=== PATIENT | female | born 1970 | race Caucasian/White ===

== ENCOUNTER 2023-06-16 19:51 | Emergency (ER) | payer BC, SELFPAY ==
[2023-06-16 19:56] VITALS: BP 131/90
[2023-06-16] MEDS: TYLENOL 1000 MG PO (22:56)
[2023-06-16 22:57] VITALS: BMI 25.9
[2023-06-16 22:59] VITALS: BP 127/68
--- NOTE | 2023-06-16 23:11 | ED.MUSCINJ ---
HPI-Injury
General
Chief Complaint: Fall
Source: patient and family (Sister at bedside)
Exam Limitations: none
Time Seen by Provider: 06/16/23 21:53
Nursing documentation reviewed up to this point in time: agreed with
Travel History
Have you had any contact with someone who has COVID-19?: No
Do you have any symptoms of coronavirus? Fever > 100 degrees, chills, cough, shortness of breath, sore throat, loss of taste or smell, muscle aches, or headache?: No
History of Present Illness-Injury
Initial Injury comments:
52-year-old female with no clinically significant past medical history states she slipped on her wet hardwood floor and fell forward striking the left forehead/orbit area on the floor about 3-1/2 hours ago. There is no loss of consciousness. She
denies change in vision. Her neck is sore. She denies nausea or vomiting. Right wrist is sore.
Past History
Past History
ED Past Medical History: GERD and Psychiatric
ED Past Surgical History: Gynecological
Social History
Tobacco: Non-smoker
Alcohol: None
Drug: None
Personal:
Living: with family
Employment: Not employed
Review of Systems
Review of Systems
Allergies reviewed?: Yes
All Other Systems: ROS reviewed and negative except as documented in HPI and ROS
Respiratory: Denies trouble breathing
Cardiac: Denies chest pain or syncope
ABD/GI: Denies abdominal pain, nausea or vomiting
: Denies dysuria, incontinence or difficulty voiding
Musculoskeletal: Reports neck pain and other (mild right wrist pain); Denies back pain
Skin: Reports other (bruise and swelling left lateral orbit)
Neurological: Reports headache; Denies dizzy, weakness or numbness
Phy Exam
Physical Exam
Physical Exam:
GENERAL: No acute distress. A&Ox3.
CONSTITUTIONAL: Afebrile.
EYES: PERRL, conjunctivae normal, contusion with mild swelling and ecchymosis lateral left orbit. EOMs intact.
Neck: Supple
ENMT: moist mucus membranes, Pharynx nl
RESPIRATORY: Regular respirations, nonlabored, lungs clear.
CARDIOVASCULAR: Regular rate and rhythm, no murmurs, no rubs.
GI: Soft, nontender
MUSCULOSKELETAL: Tender bilateral paracervical ST, no spinal bony tenderness, axial load neg. Moves with ease. Well perfused.
SKIN: Warm, dry, pink
PSYCH: Normal mood and affect. Well kept, interactive and appropriate
NEUROLOGIC: Awake, alert and oriented. No focal neurological deficits. Cranial nerves II through XII intact. Finger-nose intact. Ambulates well with steady gait.
Injury Course
Orders/Labs/Results
Orders:
Orders
06/16/23 20:01
CT Head W/o Iv Contrast Urgent
Comment:
Reason For Exam: fall
06/16/23 22:49
Acetaminophen [Tylenol] 1,000 mg PO NOW STA
MDM/Problems Addressed
MDM/Problems Addressed:
52-year-old female with no clinically significant past medical history states she slipped on her wet hardwood floor and fell forward striking the left forehead/orbit area on the floor about 3-1/2 hours ago. There is no loss of consciousness. She
denies change in vision. Her neck is sore. She denies nausea or vomiting. Right wrist is sore.
No history of loss of consciousness, no focal neurological deficits.
Head CT negative
Soft tissue tenderness bilateral cervical spine, no spinal bony tenderness, axial load negative.
Patient out of bed and ambulating well with steady gait.
Stable for discharge
*Critical Care Note
Total Time (30-74mins, 75-104mins- exclusive of procedures): Not Applicable
ED Attending Note
-
Portions of this chart may have been created with voice recognition software.� Occasional wrong word or��sound alike� substitutions may have occurred due to the inherent limitations of voice recognition software.
Discharge Plan
Departure
Patient Disposition: Home (Routine Discharge)
Date of Disposition: 06/16/23
Time of Disposition: 23:08
Patient with high blood pressure during this ER visit?: No
Condition: Good
Discharge Problem:
Fall from slip, trip, or stumble, Contusion of left orbit, Acute cervical myofascial strain
Instructions: Concussion, Adult (DC), Contusion (DC), Cervical Muscle Strain (DC)
Prescriptions:
No Action
mometasone [Nasonex] 17 GM spray,non-aerosol
2 spray intranasal DAILY
estradiol 1 APPLIC cream
1 applic vaginal WEEKLY
Patient Comments:
02/22/21- patient does not have specific day of week just uses when she remembers
clonazepam 0.5 MG tablet
0.5 mg PO BID
Patient Comments:
patient bulk picker on 02/19/21 #60
topiramate 25 MG tablet
25 mg PO BID
omeprazole 40 MG capsule,delayed release(DR/EC)
40 mg PO DAILY
sertraline 25 MG tablet
12.5 mg PO QPM
hydroxychloroquine 200 MG tablet
200 mg PO DAILY
fexofenadine-pseudoephedrine [Aissatou-D 12 Hour] 1 EACH tablet extended release 12 hr
1 tab PO DAILY
bupropion HCl 300 MG tablet extended release 24 hr
300 mg PO DAILY
Lactobac 2-Bifido 1-S. therm [High Potency Probiotic] 1 CAP capsule
1 cap PO DAILY
oxycodone-acetaminophen 5 MG/325 MG tablet
1 - 2 tab PO Q4HPRN PRN (Reason: moderate to severe pain) Qty: 20 0RF
Referrals:
Jas Blackman DO [Family Provider] - Follow up in 2-3 days
Activity Restrictions/Additional Instructions:
As we discussed, Tylenol 1000 mg up to 3 times a day as needed for headache for the next 2 days
After 2 days if you still have pain or headache you may take ibuprofen.
Return here immediately for vomiting more than once in 1 hour, confusion or headache that gets worse and worse despite Tylenol or ibuprofen.
Cold compress to the bruised area 15 minutes off and on for the next 2 days to minimize swelling
You may get a black eye.
Interventions
Interventions:
*Risk Screen - Suicide Last Done: 06/16/23 19:54
*General Assessment Last Done: 06/16/23 19:54
*Neglect/Abuse Screening Last Done: 06/16/23 19:54
*Nursing Disposition Last Done: 06/16/23 23:17
ED- Neurological Assessment Last Done: 06/16/23 23:01
Discharge Date and Time
Discharge Date/Time: 06/16/23 23:17
== END 2023-06-16 23:17 | disposition home or self-care (01) ==
LOC: EMR 19:51
PROVIDERS: EMERGENCY PHYSICIAN Emergency Medicine; FAMILY PHYSICIAN Family Medicine
DX: S05.12XA Contusion of eyeball and orbital tissues, left eye, initial encounter (principal); S16.1XXA Strain of muscle, fascia and tendon at neck level, initial encounter; W01.0XXA Fall on same level from slipping, tripping and stumbling without subsequent striking against object, initial encounter
CPT/HCPCS: 99284; 70450

== ENCOUNTER 2023-09-06 13:34 | Emergency (ER) | payer BC, SELFPAY ==
[2023-09-06 13:39] VITALS: BP 148/77
--- NOTE | 2023-09-06 14:01 | ED.GENMED ---
History of Present Illness
<Lana Daniels PA-C - Last Filed: 09/06/23 18:10>
General
Chief Complaint: Eye Problems
Source: patient
Exam Limitations: none
Time Seen by Provider: 09/06/23 13:49
Nursing documentation reviewed up to this point in time: agreed with
Travel History
Have you had any contact with someone who has COVID-19?: No
Do you have any symptoms of coronavirus? Fever > 100 degrees, chills, cough, shortness of breath, sore throat, loss of taste or smell, muscle aches, or headache?: No
History of Present Illness
History of Present Illness:
53-year-old female with a past medical history of GERD, interstitial cystitis, Sjogren's, presenting to the emergency department today with right eye pain and redness. Patient states that this started a few days ago with redness on her upper and
lower eyelids, and then progressed to some eye redness and pain. Patient denies any changes in her vision. Patient also notes that she has had a runny nose and will yesterday with purulent drainage from her eye. Patient also notes that she has
had a eruption of her herpes zoster on her her lips and is started valacyclovir. Patient denies any headache. Patient denies any chest pain, shortness of breath, abdominal pain. Patient does take Plaquenil her Sjogren's and does follow-up with
production corrugator for retinal checks. Patient has never had anything like this before.
Past History
<Lana Daniels PA-C - Last Filed: 09/06/23 18:10>
Past History
ED Past Medical History: GERD and Psychiatric
ED Past Surgical History: Gynecological
Social History
Tobacco: Non-smoker
Alcohol: None
Drug: None
Personal:
Living: with family
Employment: Not employed
Review of Systems
<Lana Daniels PA-C - Last Filed: 09/06/23 18:10>
Review of Systems
All Other Systems: ROS reviewed and negative except as documented in HPI and ROS
Phy Exam
<Lana Daniels PA-C - Last Filed: 09/06/23 18:10>
Physical Exam
Physical Exam:
General: Patient is well appearing and in no acute distress; non-toxic
Skin: Warm and dry, there is a erythematous rash in the right infraorbital region as well as right upper eyelid.
Head: Normocephalic, atraumatic
Eyes: Sclera non-icteric. EOMs intact. Right eye visual acuity 20/20, left eye visual acuity 20/30. Right eye: Scleral injection noted with some purulent drainage, no consensual photophobia. White ulcer noted in the right lower conjunctiva. With
fluorescein staining, no corneal ulcers, abrasions, or dendritic lesions. Right intraocular pressure 14 mmHg via tonometer.
Mouth: Herpetic vesicular lesions noted to the left upper lip. No intraoral lesions. No tongue swelling, no pharyngeal lesions.
Cardiac: Regular rate and rhythm, no murmurs
Peripheral Vascular: No lower extremity swelling
Pulm: Normal respiratory effort
Musculoskeletal: No tenderness to palpation of the facial bones or cervical spine.
Neuro: CN II-XII intact, no focal neurologic deficits.
Psychiatric: Appropriate mood and affect.
Course
<Lana Daniels PA-C - Last Filed: 09/06/23 18:10>
Orders/Labs/Results
Orders:
Orders
09/06/23 15:05
Tetracaine HCl [Tetracaine 0.5% Ophthalmic Solution] 1 drop .ROUTE .[facility]
Vital Signs
Initial and Last Documented VS:
Initial Vital Signs
Temp Pulse Resp BP Pulse Ox
98.2 F 80 18 148/77 99
09/06/23 13:39 09/06/23 13:39 09/06/23 13:39 09/06/23 13:39 09/06/23 13:39
Last Documented Vital Signs
Temp Pulse Resp BP Pulse Ox
98.2 F 80 18 148/77 99
09/06/23 13:39 09/06/23 13:39 09/06/23 13:39 09/06/23 13:39 09/06/23 13:39
<Jas Navarro DO - Last Filed: 09/06/23 15:19>
Orders/Labs/Results
Orders:
Orders
09/06/23 15:05
Tetracaine HCl [Tetracaine 0.5% Ophthalmic Solution] 1 drop .ROUTE .[facility]
Vital Signs
Initial and Last Documented VS:
Initial Vital Signs
Temp Pulse Resp BP Pulse Ox
98.2 F 80 18 148/77 99
09/06/23 13:39 09/06/23 13:39 09/06/23 13:39 09/06/23 13:39 09/06/23 13:39
Last Documented Vital Signs
Temp Pulse Resp BP Pulse Ox
98.2 F 80 18 148/77 99
09/06/23 13:39 09/06/23 13:39 09/06/23 13:39 09/06/23 13:39 09/06/23 13:39
<Lana Daniels PA-C - Last Filed: 09/06/23 18:10>
MDM/Problems Addressed
Differential Diagnosis Includes:
ddx include conjunctivitis, preseptal cellulitis, herpes ophthalmicus, uveitis, acute angle closure glaucoma
MDM/Problems Addressed:
eye pain and redness
Chronic conditions affecting care:
Migraines, GERD, interstitial cystitis
<Lana Daniels PA-C - Last Filed: 09/06/23 18:10>
*Pulse Oximetry
Patient hypoxic: no
*Critical Care Note
Total Time (30-74mins, 75-104mins- exclusive of procedures): Not Applicable
Data Reviewed
Review of Other/Old Records Reveals: Records (Reviewed ER physician documentation from 06/16/2023) and Discharge Summary (Reviewed discharge summary from 08/28/2017)
Source: patient and records
<Lana Daniels PA-C - Last Filed: 09/06/23 18:10>
Patient Management
Escalation/DeEscalation of care consider admission/obs:
53-year-old female with a past medical history of GERD, interstitial cystitis, Sjogren's, presenting to the emergency department today with right eye pain and redness. On exam, she does have scleral injection noted on the right with small
erythematous rash noted to the superotemporal orbital regions with some mild swelling. Pupils are equal round reactive to light bilaterally, visual acuity intact at baseline. On fluorescein staining, patient has no corneal abrasions or ulcers.
Patient does have a small viral ulcer noted in the inside of the right inferior palpebra conjunctiva. Patient is currently taking valacyclovir for the herpetic on her lips, however considering ulcer in the lower palpebral conjunctiva, do suspect
ophthalmic involvement will start on viral eyedrops as well as encourage continuation also clear. Will start Augmentin to cover for any developing secondary bacterial cellulitis. Patient stable for discharge. Patient will follow-up with her
production corrugator in a week.
ED Attending Note
<Lana Daniels PA-C - Last Filed: 09/06/23 18:10>
-
Portions of this chart may have been created with voice recognition software.� Occasional wrong word or��sound alike� substitutions may have occurred due to the inherent limitations of voice recognition software.
<Jas Navarro DO - Last Filed: 09/06/23 15:19>
ED Attending Note
Patient seen and examined by attending physician: Yes
I performed the substantive portion of visit, reviewed & personally made and approve the management plan that is documented in note by myself or SWETHA.: Yes
ED Attending Note:
Patient is a 53-year-old female with a history of Sjogren's disease and presents with redness and irritation of her right eye. Started couple days ago and patient was started on eyedrops. Patient states it still feels red and full. Patient also
started with herpetic breakout about her lip and was placed on Valtrex. Patient is on Plaquenil for her Sjogren's. Patient denies any visual changes. Patient did have crusting of the eyelid. On physical exam patient's right lower lid is
erythematous and edematous with erythema extending into the right infra orbital region. Patient denies fever. On physical exam the fluorescein is clear. Lower lobe does have the edema with ulceration on the inner aspect of the right lower eyelid.
There is mild tenderness in the right maxillary area. Patient is already on oral Valtrex. Will start her on viral eyedrops and have her see her production corrugator as well as starting antibiotics for possible cellulitis secondary to the viral
ulceration.
Discharge Plan
Departure
Patient Disposition: Home (Routine Discharge)
Date of Disposition: 09/06/23
Time of Disposition: 14:56
Patient with high blood pressure during this ER visit?: Yes
Condition: Good
Discharge Problem:
Conjunctivitis, Herpes zoster
Instructions: Conjunctivitis (Pinkeye) (DC), BLOOD PRESSURE
Prescriptions:
New
amoxicillin-pot clavulanate 875-125 mg tablet
1 tab PO BID 5 Days Qty: 10 0RF
Zirgan 0.15 % gel
1 drp BOTH EYES TID 7 Days Qty: 5 0RF
No Action
mometasone [Nasonex] 17 GM spray,non-aerosol
2 spray intranasal DAILY
estradiol 1 APPLIC cream
1 applic vaginal WEEKLY
Patient Comments:
02/22/21- patient does not have specific day of week just uses when she remembers
clonazepam 0.5 MG tablet
0.5 mg PO BID
Patient Comments:
patient brick picker on 02/19/21 #60
topiramate 25 MG tablet
25 mg PO BID
omeprazole 40 MG capsule,delayed release(DR/EC)
40 mg PO DAILY
sertraline 25 MG tablet
12.5 mg PO QPM
hydroxychloroquine 200 MG tablet
200 mg PO DAILY
fexofenadine-pseudoephedrine [Aissatou-D 12 Hour] 1 EACH tablet extended release 12 hr
1 tab PO DAILY
bupropion HCl 300 MG tablet extended release 24 hr
300 mg PO DAILY
Lactobac 2-Bifido 1-S. therm [High Potency Probiotic] 1 CAP capsule
1 cap PO DAILY
oxycodone-acetaminophen 5 MG/325 MG tablet
1 - 2 tab PO Q4HPRN PRN (Reason: moderate to severe pain) Qty: 20 0RF
Referrals:
Jas Blackman DO [Family Provider] -
Activity Restrictions/Additional Instructions:
Please call your ophthalmology office tomorrow to schedule an appointment for follow up in a week.
Please continue your valacyclovir. Please start taking Augmentin, please take one tablet once daily for 5 days.
Please stop antibiotic eye drop. Please start antiviral eye drop 5 times daily for 7 days.
PLEASE RETURN SHOULD YOU EXPERIENCE FEVERS OR CHILLS, VISUAL CHANGES, AN ACUTE WORSENING OF YOUR PAIN, OR ANY OTHER CONCERNING SIGNS OR SYMPTOMS.
Interventions
Interventions:
*Risk Screen - Suicide Last Done: 09/06/23 13:39
*General Assessment Last Done: 09/06/23 13:39
*Neglect/Abuse Screening Last Done: 09/06/23 13:43
*ED COVID-19 Vaccine History Last Done: 09/06/23 13:39
*Nursing Disposition Last Done: 09/06/23 15:27
Discharge Date and Time
Discharge Date/Time: 09/06/23 15:28
Print Language: SENEGALESE
== END 2023-09-06 15:28 | disposition home or self-care (01) ==
LOC: EMR 13:34
PROVIDERS: EMERGENCY PHYSICIAN Emergency Medicine; FAMILY PHYSICIAN Family Medicine
DX: B02.31 Zoster conjunctivitis (principal); K21.9 Gastro-esophageal reflux disease without esophagitis; M35.00 Sjogren syndrome, unspecified; N30.10 Interstitial cystitis (chronic) without hematuria
CPT/HCPCS: 99282

== ENCOUNTER → 2024-02-16 10:58 | Outpatient (REF) | payer BC, SELFPAY | LOC: WDC 10:58 | PROVIDERS: ATTENDING PHYSICIAN Family Medicine | DX: Z12.31 Encounter for screening mammogram for malignant neoplasm of breast (principal) | CPT/HCPCS: 77063; 77067 ==

== ENCOUNTER 2024-05-23 11:52 | Emergency (ER) | payer BC, SELFPAY ==
[2024-05-23 11:56] VITALS: BP 123/80
[2024-05-23 12:25] LABS: % Basophils 1.3 % (0-2); % Eosinophils 1.9 % (0-6); % Immature Granulocytes 0.3 % (0-0.5); % Lymphocytes 28.7 % (20.5-51.1); % Monocytes 7.5 % (1.7-9.3); % Neutrophils 60.3 % (42.2-75.2); Absolute Basophils 0.1 10^3/uL (0-0.2); Absolute Eosinophils 0.1 10^3/uL (0-0.7); Absolute Monocytes 0.5 10^3/uL (0.1-0.6); Absolute Neutrophils 4.2 10^3/uL (1.4-6.5); Hematocrit 39.5 % (37.0-47.0); Mean Corp Hgb Conc. 32.9 g/dL (33.0-37.0); Mean Corpuscular Hgb 27.2 pg (27.0-31.0); Mean Corpuscular Volume 82.6 fL (81.0-99.0); Mean Platelet Volume 10.7 fL (7.4-10.4); Nucleated Red Blood Cells % 0 %; Platelet Count 306 10^3/uL (130-400); Red Blood Cell Count 4.78 10^6/uL (4.20-5.40)
[2024-05-23 12:37] LABS: Urine Albumin Negative (Neg - Trace); Urine Bilirubin Negative (Negative); Urine Character Clear (Clear); Urine Color Yellow; Urine Glucose Negative (Negative); Urine Ketone Negative (Negative); Urine Leukocyte 2+ (Negative); Urine Nitrite Negative (Negative); Urine Occult Blood 2+ (Negative); Urine Urobilinogen Negative (Neg - 1+)
[2024-05-23 12:49] LABS: ALT (SGPT) 14 U/L (0-35); AST (SGOT) 19 U/L (14-36); Albumin 4.6 g/dl (3.5-5.0); Alkaline Phosphatase 66 U/L (38-126); Blood Urea Nitrogen 14 mg/dl (7-17); Calcium 9.3 mg/dl (8.4-10.2); Carbon Dioxide 26 mmol/L (22-30); Chloride 101 mmol/L (98-107); Glucose 95 mg/dl (70-99); Potassium 4.5 mmol/L (3.5-5.1); Sodium 138 mmol/L (135-145); Total Bilirubin 0.5 mg/dl (0.2-1.3); Total Protein 6.9 g/dl (6.3-8.2); eGFR > 60.00
[2024-05-23 13:34] VITALS: BP 140/79
[2024-05-23] MEDS: TORADOL 30 MG IM (13:43)
[2024-05-23 13:44] LABS: Urine Amorphous Seen
[2024-05-23 13:45] LABS: Urine White Cell 70-80 /HPF (0-5)
--- NOTE | 2024-05-23 13:46 | ED.GENMED ---
History of Present Illness
General
Chief Complaint: Flank Pain
Time Seen by Provider: 05/23/24 13:09
History of Present Illness
History of Present Illness:
53-year-old female presents the emergency department for evaluation of intermittent left upper quadrant and left flank pain ongoing for the past month. She states that she has had occasional UTI symptoms such as dysuria and urgency during this time
as well. Had a urinalysis performed by her primary care physician last week that was unrevealing. Was sent for an outpatient CT scan however was unable to get scheduled. Pain increased this morning associated with nausea, no vomiting or diarrhea.
Past History
Past History
ED Past Medical History: GERD and Psychiatric
ED Past Surgical History: Gynecological
Social History
Tobacco: Non-smoker
Alcohol: None
Drug: None
Personal:
Living: with family
Employment: Not employed
Review of Systems
Review of Systems
Allergies reviewed?: Yes
All Other Systems: ROS reviewed and negative except as documented in HPI and ROS
Phy Exam
Physical Exam
Physical Exam:
GEN: Well appearing, NAD, WDWN
HEENT: Oral mucosa moist, no scleral icterus
Cardiac: Regular rate
Lung: No respiratory distress, no tachypnea
Abdomen: Soft, grossly nontender, no rigidity
MSK: No gross deformity or injuries
Skin: Good color, no pallor or jaundice, no rashes
Neuro: AO x3, moves all extremities freely
Psych: Calm, cooperative
Course
Orders/Labs/Results
Orders:
Orders
05/23/24 12:09
Complete Blood Count/With Diff Urgent
Comprehensive Metabolic Panel Urgent
Urinalysis Reflex To Culture Urgent
Date Specimen was Collected: 05/23/24
Time Specimen was Collected: 11:56
Urine Microscopic Reflex Cult Urgent
Urine Culture Urgent
EBONIE Source: U
Specimen Description:
Obtained by: Random
Date Specimen was Collected: 05/23/24
Time Specimen was Collected: 11:56
05/23/24 13:23
CT Abd/pel Without Iv Or Oral Urgent
Comment:
Reason For Exam: L flank pain
05/23/24 13:37
Ketorolac [Toradol] 30 mg IM NOW STA
05/23/24 14:05
Oxycodone [Roxicodone] 5 mg PO NOW STA
Abnormal Lab Results
05/23/24
12:09
MCHC 32.9 L g/dL
(33.0-37.0)
RDW 16.0 H %
(11.5-14.5)
MPV 10.7 H fL
(7.4-10.4)
Ur Occult Blood Reflex 2+ A
(Negative)
Leukocyte Esterase Rfl 2+ A
(Negative)
Urine RBC 3-6 A /HPF
(0-2)
Urine WBC (Reflex) 70-80 A /HPF
(0-5)
Urine Bacteria (Reflex) Few A
(Negative)
05/23/24 12:09
05/23/24 12:09
Vital Signs
Initial and Last Documented VS:
Initial Vital Signs
Temp Pulse Resp BP Pulse Ox
98.9 F 72 18 123/80 91
05/23/24 11:56 05/23/24 11:56 05/23/24 11:56 05/23/24 11:56 05/23/24 11:56
Last Documented Vital Signs
Temp Pulse Resp BP Pulse Ox
98.9 F 64 18 140/79 99
05/23/24 11:56 05/23/24 13:34 05/23/24 13:34 05/23/24 13:34 05/23/24 13:34
MDM/Problems Addressed
MDM/Problems Addressed:
Imaging shows no evidence of acute pathology. Radiology did not specifically comment on bowel wall pathologies however my personal review of CT scan I see no evidence of bowel wall thickening to suggest a condition such as diverticulitis.
Urinalysis does appear to be infected with large whites and few bacteria. Given her symptoms we will treat as acute pyelonephritis, she was prescribed Augmentin by her primary care physician which would be appropriate.
*Critical Care Note
Total Time (30-74mins, 75-104mins- exclusive of procedures): Not Applicable
ED Attending Note
-
Portions of this chart may have been created with voice recognition software.� Occasional wrong word or��sound alike� substitutions may have occurred due to the inherent limitations of voice recognition software.
Discharge Plan
Departure
Patient Disposition: Home (Routine Discharge)
Date of Disposition: 05/23/24
Time of Disposition: 15:44
Patient with high blood pressure during this ER visit?: No
Discharge Problem:
Acute pyelonephritis
Instructions: Urinary tract infection - Discharge instructions
Prescriptions:
New
oxycodone 5 mg tablet
5 mg PO Q8H PRN (Reason: Pain) Qty: 10 0RF
No Action
mometasone [Nasonex] 17 GM spray,non-aerosol
2 spray intranasal DAILY
estradiol 1 APPLIC cream
1 applic vaginal WEEKLY
Patient Comments:
02/22/21- patient does not have specific day of week just uses when she remembers
clonazepam 0.5 MG tablet
0.5 mg PO BID
Patient Comments:
patient order picker on 02/19/21 #60
topiramate 25 MG tablet
25 mg PO BID
omeprazole 40 MG capsule,delayed release(DR/EC)
40 mg PO DAILY
sertraline 25 MG tablet
12.5 mg PO QPM
hydroxychloroquine 200 MG tablet
200 mg PO DAILY
fexofenadine-pseudoephedrine [Aissatou-D 12 Hour] 1 EACH tablet extended release 12 hr
1 tab PO DAILY
bupropion HCl 300 MG tablet extended release 24 hr
300 mg PO DAILY
Lactobac 2-Bifido 1-S. therm [High Potency Probiotic] 1 CAP capsule
1 cap PO DAILY
oxycodone-acetaminophen 5 MG/325 MG tablet
1 - 2 tab PO Q4HPRN PRN (Reason: moderate to severe pain) Qty: 20 0RF
amoxicillin-pot clavulanate 875-125 mg tablet
1 tab PO BID 5 Days Qty: 10 0RF
Zirgan 0.15 % gel
1 drp BOTH EYES TID 7 Days Qty: 5 0RF
Referrals:
Jas Blackman DO [Family Provider] -
Activity Restrictions/Additional Instructions:
Take the antibiotic your primary care physician prescribed
Use the pain medication only as needed for severe pain. If you not feel improved in the next 72 hours/6 doses of antibiotics please return to the ER for further evaluation
Interventions
Interventions:
*Risk Screen - Suicide Last Done: 05/23/24 11:56
*General Assessment Last Done: 05/23/24 11:56
*Neglect/Abuse Screening Last Done: 05/23/24 11:56
*ED COVID-19 Vaccine History Last Done: 05/23/24 11:56
VG-Vyjxqq-Irypspeofh Assessment Last Done: 05/23/24 13:36
ED-Female Genitourinary Assessment Last Done: 05/23/24 13:36
Discharge Date and Time
Print Language: PERSIAN
[2024-05-23 13:51] LABS: Urine Bacteria Few (Negative); Urine Hyaline Cast 0-2 /LPF (0-2)
[2024-05-23] MEDS: ROXICODONE 5 MG PO (14:17)
[2024-05-23 15:59] VITALS: BP 162/80
== END 2024-05-23 16:08 | disposition home or self-care (01) ==
LOC: EMR 11:52
PROVIDERS: EMERGENCY PHYSICIAN Emergency Medicine; FAMILY PHYSICIAN Family Medicine
DX: N10 Acute pyelonephritis (principal); K21.9 Gastro-esophageal reflux disease without esophagitis
CPT/HCPCS: 96372; 99284; 74176; 80053; 81003; 81015; 85025; 87086

== ENCOUNTER → 2024-06-19 14:20 | Outpatient (REF) | payer BC, SELFPAY | LOC: HWRAD 14:20 | PROVIDERS: ATTENDING PHYSICIAN Family Medicine | DX: R10.32 Left lower quadrant pain (principal); R10.9 Unspecified abdominal pain; N20.0 Calculus of kidney | CPT/HCPCS: 76770 ==

== ENCOUNTER 2024-08-08 09:07 | Outpatient (RCR) | payer BC, SELFPAY | END 2024-08-08 23:59 | disposition home or self-care (01) | LOC: RPT 09:07 | PROVIDERS: ATTENDING PHYSICIAN Nurse Practitioner; FAMILY PHYSICIAN Family Medicine | DX: N30.10 Interstitial cystitis (chronic) without hematuria (principal); R10.2 Pelvic and perineal pain; N94.10 Unspecified dyspareunia; N39.0 Urinary tract infection, site not specified; Z73.6 Limitation of activities due to disability; M62.89 Other specified disorders of muscle; K59.00 Constipation, unspecified | CPT/HCPCS: 97014; 97140; 97163; 97530 ==

== ENCOUNTER 2024-09-07 15:04 | Outpatient (RCR) | payer BC, SELFPAY | END 2024-09-07 23:59 | disposition home or self-care (01) | LOC: RPT 15:04 | PROVIDERS: ATTENDING PHYSICIAN Nurse Practitioner; FAMILY PHYSICIAN Family Medicine | DX: N30.10 Interstitial cystitis (chronic) without hematuria (principal); R10.2 Pelvic and perineal pain; N94.10 Unspecified dyspareunia; N39.0 Urinary tract infection, site not specified; Z73.6 Limitation of activities due to disability; M62.89 Other specified disorders of muscle; K59.00 Constipation, unspecified | CPT/HCPCS: 97014; 97110; 97140; 97530 ==

== ENCOUNTER 2024-09-26 13:09 | Outpatient (RCR) | payer BC, SELFPAY | END 2024-09-26 23:59 | disposition home or self-care (01) | LOC: RPT 13:09 | PROVIDERS: ATTENDING PHYSICIAN Nurse Practitioner; FAMILY PHYSICIAN Family Medicine | DX: N30.10 Interstitial cystitis (chronic) without hematuria (principal); R10.2 Pelvic and perineal pain; N94.10 Unspecified dyspareunia; N39.0 Urinary tract infection, site not specified; Z73.6 Limitation of activities due to disability; M62.89 Other specified disorders of muscle; K59.00 Constipation, unspecified | CPT/HCPCS: 97014; 97110; 97140; 97530 ==

== ENCOUNTER 2024-11-02 15:12 | Outpatient (RCR) | payer BC, SELFPAY | END 2024-11-02 23:59 | disposition home or self-care (01) | LOC: RPT 15:12 | PROVIDERS: ATTENDING PHYSICIAN Nurse Practitioner; FAMILY PHYSICIAN Family Medicine | DX: N30.10 Interstitial cystitis (chronic) without hematuria (principal); R10.2 Pelvic and perineal pain; N94.10 Unspecified dyspareunia; Z73.6 Limitation of activities due to disability; M62.89 Other specified disorders of muscle; K59.00 Constipation, unspecified; N39.0 Urinary tract infection, site not specified | CPT/HCPCS: 97010; 97014; 97110; 97140; 97530 ==

== ENCOUNTER 2025-01-19 09:09 | Outpatient (RCR) | payer BC, SELFPAY | END 2025-02-05 23:59 | disposition home or self-care (01) | LOC: RPT 09:09 | PROVIDERS: ATTENDING PHYSICIAN Nurse Practitioner; FAMILY PHYSICIAN Family Medicine | DX: N30.10 Interstitial cystitis (chronic) without hematuria (principal); R10.2 Pelvic and perineal pain; N94.10 Unspecified dyspareunia; R10.20 Pelvic and perineal pain unspecified side; Z73.6 Limitation of activities due to disability; M62.89 Other specified disorders of muscle; K59.00 Constipation, unspecified; N39.0 Urinary tract infection, site not specified | CPT/HCPCS: 97014; 97140; 97530 ==